=== PATIENT | male | born 1970 | race Caucasian/White ===

== ENCOUNTER 2025-04-16 07:59 | Outpatient (AMB) | payer OTHER, SELFPAY ==
--- NOTE | 2025-04-16 08:01 | A.PHYSOV_ITS ---
Vital Signs 04/16/25 08:04 Height 5 ft 7 in Weight 141 lb BMI 22.1 Intake Visit Reasons: MRI followup Intake Note: Patient is a 54 year old male in office today to review his lumbar spine MRI. Buyer Assistant Required: No Allergies No Known Allergies Allergy (Verified 04/16/25 08:02) HPI Comments Details: History of Present Illness The patient is a 54-year-old male presenting with chronic neck and lower back pain. The chronic neck pain is associated with right-sided radicular symptoms extending to the right arm, impacting his daily activities, especially given his right-handedness. He has a history of cervical radiculitis and underwent a C7-T1 epidural injection in 2019, which provided temporary relief. Recent cervical spine MRI on 04/02/2025 revealed severe right lateral spinal canal stenosis at the C4-C5 level with compression of the C5 nerve root and moderate compression of the spinal cord, correlating with his symptoms. Right worse than left foraminal stenosis at the C5-C6 level and severe foraminal stenosis at the C6-C7 level on the right side. Findings correlate with his symptomatic presentation The chronic lower back pain is accompanied by left-sided radicular symptoms, with a history of a left-sided L5-S1 paramedian disc herniation displacing the left S1 nerve root. A left S1 transforaminal injection on February 28, 2025, resulted in 100% pain relief in the lower back, although dysesthesia in the left lower extremity persists. The patient reports that static standing exacerbates the tingling sensation in his leg, while movement provides some relief. Pain Description - Onset: Chronic neck and lower back pain with radicular symptoms - Quality: Dull, aching pain in the neck radiating to the right arm; tingling in the left leg - Location: Neck, lower back, right arm, left leg - Exacerbating factors: Static standing increases tingling in the leg - Relieving factors: Movement alleviates tingling sensation Results - MRI of the lumbosacral spine: Left-sided L5-S1 paramedian disc herniation displacing the left S1 nerve root - MRI of the cervical spine: Severe stenosis at C4-C5 with compression of the C5 nerve root and moderate compression of the spinal cord; bilateral C5-C6 neural foraminal stenosis, right worse than left; severe stenosis of the C7 neural foramina at C6-C7 on the right side [facility] Medical History (Updated 04/16/25 @ 08:37 by Aniket Delong DO) Lumbar radiculitis Lumbar disc herniation Cervical radiculitis Cervical spinal stenosis Social History Alcohol intake: current Alcohol intake frequency: holidays/special occasions only Patient Tobacco Use Status: Former Tobacco user Use of substances other than those prescribed or required for medical reasons: No Current occupational status: employed Review of Systems Narrative Review of Systems - Musculoskeletal: Reports chronic neck and lower back pain with radicular symptoms - Neurological: Reports tingling in the left leg, right arm pain, patient denies any change in bowel bladder habits, patient denies any fever or chills, denies uncontrolled depression or suicidal ideation Physical Exam Exam Exam: Physical Exam Patient appears to be in no acute distress, appropriately conversant and oriented. He ambulates without antalgia. Dural tension signs were positive for left lower extremity. Neurological examination was nonfocal. He was able to perform heel walk and toe walk. Spurling maneuver was positive on the right side. Lhermitte's sign was negative. Cervical range of motion was restricted and side bending to the right and rotation to the right. Neurological examination reveals mildly diminished right triceps reflex with slight weakness of right elbow extension which has been stable since his last follow-up visit. Wrist extension and the rest of the muscle motor testing was normal. Patient demonstrated no upper motor neuron signs. Vital Signs: BMI result Body Mass Index 22.1 Assessment & Plan Assessment & Plan (1) Cervical spinal stenosis: Code(s): M48.02 - Spinal stenosis, cervical region Category: Medical (2) Cervical radiculitis: Code(s): M54.12 - Radiculopathy, cervical region Category: Medical (3) Lumbar disc herniation: Code(s): M51.26 - Other intervertebral disc displacement, lumbar region Category: Medical (4) Lumbar radiculitis: Code(s): M54.16 - Radiculopathy, lumbar region Category: Medical Plan Pain Management - Affect: Pain impacts daily activities, especially due to right-handedness - Analgesia: Left S1 transforaminal injection provided 100% pain relief in the lower back - Adverse Effects: None reported - Activities of Daily Living: Pain affects work at [employer] a sedentary job - Aberrant Drug Related Behaviors: None reported Plan Patient was informed and verbally consented to the use of an ambient scribe for clinic note documentation during this visit. 1. Chronic Neck Pain The patient has chronic neck pain with right-sided radicular symptoms extending to the right arm, correlating with cervical spinal stenosis findings on MRI. Management options discussed include considering another neck injection or surgical evaluation, depending on the severity of symptoms and patient preference. 2. Chronic Lower Back Pain The patient experiences chronic lower back pain with left-sided radicular symptoms due to L5-S1 disc herniation. A left S1 transforaminal injection provided significant relief, but persistent dysesthesia in the left leg remains. Consideration for a repeat injection was discussed to address ongoing symptoms. Discussion Notes I discussed with the patient the findings of the cervical and lumbar spine MRIs, highlighting the areas of stenosis and nerve compression that correlate with his symptoms. We reviewed the potential management options, including repeat injections or surgical evaluation, and the patient was advised to consider his symptoms' severity and lifestyle impact when deciding. Proceed with repeat left S1 transforaminal epidural steroidal injection. Risks and benefits of the procedure were discussed with the patient. Potential alternative measures were also discussed. Patient understands that the procedure is completely elective. Potential side effects associated with injectable medications were discussed. All questions were answered to the patient's satisfaction. Proceed with neurosurgical consultation for neck pain, cervical spinal stenosis and cervical radiculitis. Patient Instructions - Continue taking turmeric as it may help alleviate some symptoms. - Consider the option of a repeat injection for lower back pain if symptoms persist. - Evaluate the need for surgical consultation for neck pain based on symptom severity. Orders: Referrals Neurosurgery Referral M48.02 - Spinal stenosis, cervical region, M54.12 - Radiculopathy, cervical region Coding Level of Care Code Est Pt Level 4 (42162) Complex EM visit Add On G2211 Diagnoses Cervical spinal stenosis M48.02 Cervical radiculitis M54.12 Lumbar disc herniation M51.26 Lumbar radiculitis M54.16
[2025-04-16 08:04] VITALS: BMI 22.1
--- OUTSIDE RECORDS SUMMARY | 2025-04-16 15:31 | XMS_ITS | Clinical Summary ---
Author Organization [address] Address [address] [place] [phone] Phone Care Team Providers Care Process Improvement Engineer Name Role Phone Malachi Orozco MD Primary Care Provider [phone] Allergies Active Allergy Reactions Criticality Noted Date Comments Cat Dander 09/09/2014 Coughing , fever , sneezing Dog Dander 09/09/2014 Coughing , sneezing , Other Cough,Fever,Runny nose,Sneezing 09/09/2014 Seasonal Medications LORATADINE ORAL Acti ve acetaminophen (TYLENOL EXTRA STRENGTH ORAL) Take by mouth as needed. Active TURMERIC ORAL Also includes 5 MG black pepper. Active olopatadine (Pataday Once Daily Relief) 0.2 % ophthalmic solution 1 DROP IN EACH EYE DAILY 08/13/19 08 Active sennosides (SENNA-GEN ORAL) Take 8.6 mg by mouth 1 (one) time each day. Active UNABLE TO FIND livongo Meter ,lancets and test strips To test blood sugar Once or twice a week Active fluticasone propionate (FLONASE) 50 mcg/actuation nasal spray 11/02/19 22 Active hydroCHLOROthiaz lisa (HYDRODIURIL) 25 mg tablet Take 1 Tab by mouth daily. 03/07/20 20 Active polyethylene glycol (PEG) 17 gram/dose oral powder 17 g 1 (one) time each day. Active risankizumab-rza a (Skyrizi) 150 mg/mL pen injector Inject 150 mg under the skin. Every 3 months. Active tirzepatide (Mounjaro) 7.5 mg/0.5 mL injectionIndicat ions:Type 2 diabetes mellitus with neurological manifestations, controlled ([facility] V24, [facility] V28) Inject 7.5 mg into the skin every 7 days. 2 mL 10/24/19 Active omeprazole (PriLOSEC) [address] capsule TAKE ONE CAPSULE BY MOUTH EVERY DAY 90 capsule 1 02/01/20 Active methIMAzole (TAPAZOLE) 5 mg tablet Take 0.5 Tablets by mouth daily. 30 each 02/12/20 Active propranoloL (INDERAL) 20 mg tablet TAKE ONE TABLET BY MOUTH TWICE A DAY 180 tablet 1 03/13/20 Active atorvastatin (LIPITOR) 20 mg tablet TAKE ONE TABLET BY MOUTH EVERY DAY 90 tablet 1 03/13/20 Active lisinopriL (PRINIVIL,ZESTRI L) 2.5 mg tablet TAKE ONE TABLET BY MOUTH EVERY DAY 90 tablet 1 03/13/20 Active zolpidem (AMBIEN) 10 mg tablet Take 1 tablet (10 mg total) by mouth at bedtime as needed for sleep for up to 28 days. Max Daily Amount: 10 mg 28 tablet 04/07/20 25 025 Active zolpidem (AMBIEN) 10 mg tablet TAKE ONE TABLET BY MOUTH ONCE DAILY NEEDED FOR SLEEP 28 tablet 03/10/20 025 Discontinued Active Problems Problem Noted Date Diagnosed Date Bunion 09/09/2024 Cervical radiculitis 07/17/2024 Familial hypercholesterolemia 07/17/2024 Other hyperlipidemia 03/12/2024 Overview (03/12/2024): 10 year total CHD risk: 3%, 10 year hard CHC risk: 1%,risk category: 0-1 risk, LDL goal <160, Migraine headache 03/12/2024 Osteopenia 03/12/2024 Gastroparesis 01/02/2023 Bilateral renal cysts 09/27/2018 Insomnia 12/06/2016 Overview (03/12/2024): 11/2016 - diagnostic polysomnogram did not reveal sleep apnea. Referral to sleep medicine/neurology. Type 2 diabetes mellitus wit h neurological manifestations, controlled ([facility] V24, [facility] V28) 04/17/2014 Hyperthyroidism 01/30/2013 HTN (hypertension) 11/14/2011 Vitamin D deficiency 05/03/2010 Internal hemorrhoids 08/24/2009 Overview (03/12/2024): Flex sig in 2008 Eosinophilic esophagitis 05/11/2009 Overview (03/12/2024): Upper endoscopy with Dr. Conde in 04/2009 Encounters Date Type Department Care Team Description 04/08/2025 11:30 AM EST Office Visit Walk-In Clinic - [address] [phone] Holly Palomino NP Tick bite of abdominal wall, initial encounter (Primary Dx) 04/03/2025 4:43 PM EST - 04/03/2025 11:59 PM EST Hospital Encounter Radiology Department - [address] [phone] Spinal stenosis, cervical region; Radiculopathy, cervical region Discharge Disposition: Home or Self Care 04/03/2025 Telephone Endocrinology - [address] [phone] Kimberlee Morgan PA 02/13/2025 4:12 PM EDT - 02/13/2025 11:59 PM EDT Hospital Encounter Radiology Department - [address] [phone] Other intervertebral disc displacement, lumbar region; Radiculopathy, lumbar region Discharge Disposition: Home or Self Care 02/04/2025 10:30 AM EDT Office Visit Walk-In Clinic - [address] [phone] Jose Swain PA Acute left-sided low back pain with left-sided sciatica (Primary Dx) 02/04/2025 Telephone Internal Medicine - [address] [phone] Malachi Orozco MD from Last 3 Months Immunizations Immunization Administration Dates Next Due Diptheria & Tetanus, 6wks to less than 7yo 07/10/2004 Influenza Quadravalent, MDCK , 0.5ml, preservative free (Flucelvax) 6mo and older 02/27/2018 Influenza Quadravalent, MDCK , 0.5ml, with preservative (Flucelvax) 6mo and older 03/04/2021,02/27/2020,02/14/2020,02/26 Influenza trivalent, 0.5mL ( Fluad) 65yo and older 02/28/2013,03/02/2012 Influenza trivalent, 0.5mL, preservative free (Fluarix; FluLaval; Fluzone) ages 6mo and older (Afluria) 3 years and older 03/01/2017 Influenza trivalent, with pr eservative (Fluzone; Afluria) 6mo and older 02/22/2024 Influenza, Unspecified 03/02/2023,03/09/2022 Moderna Covid-19 Bivalent, O riginal + Ba.1 (Non-US Tradename Spikevax Bivalent) 02/22/2024 Moderna SARS-CoV-2 COVID-19, mRNA, LNP-S, preservative free 02/28/2022,09/03/2021 Pneumococcal conjugate 13 va lent (Prevnar 13, PCV13) 2mo and older 06/10/2016 Pneumococcal polysaccharide 23 valent (Pneumovax 23) 2yo and older 09/09/2014 Tdap Tetanus diptheria acell ular pertussis (Boostrix; Adacel) 7yo and older 06/07/2019 Zoster recombinant (Shingrix ) 19yo and older 2021,03/04/2021 Surgical History Surgery Date Site/Laterality Comments COLONOSCOPY PROCEDURE: LA COLONOSCOPY STOMA DX INCLUDING COLLJ SPEC SPX; COMMENT: flex sig, done with Dr. conde in 2008 for rectal bleed ESOPHAGOGASTRODUODENOSCOPY 2020 PROCEDURE: LA ESOPHAGOGASTRODUODENOSCOPY TRANSORAL DIAGNOSTIC; COMMENT: eosinophilic esophagitis FOOT SURGERY Bilateral PROCEDURE: LA UNLISTED PROCEDURE FOOT/TOES; COMMENT: ingrown toenail, last in 04/20 Medical History Medical History Date Comments Other and unspecified hyperlipidemia DX:Other and unspecified hyperlipidemia Osteopenia DX:Osteopenia Migraine headache DX:Migraine he adache Insomnia 12/06/2016 DX:Insomnia; COM MENT: 11/2016 - diagnostic polysomnogram did not reveal sleep apnea. Referral to sleep medicine/neurology. Bilateral renal cysts 09/27/2018 DX:Bilater al renal cysts Eosinophilic esophagitis 05/11/2009 DX:Eosi nophilic esophagitis; COMMENT: Upper endoscopy with Dr. Conde in 04/2009 Type 2 diabetes mellitus wit h neurological manifestations, controlled ([facility] V24, [facility] V28) 04/17/2014 DX:Type 2 diabet es mellitus with neurological manifestations, controlled ([facility]) Hyperthyroidism 01/30/2013 DX:Hyperthyroidi sm; COMMENT: now hypothyroidism Vitamin D deficiency 05/03/2010 DX:Vitamin D deficiency HTN (hypertension) 11/14/2011 DX:HTN (hyper tension) Internal hemorrhoids 08/24/2009 DX:Internal hemorrhoids; COMMENT: Flex sig in 2008 Psoriasis DX:Psoriasis Family History Medical History Relation Name Comments Alcohol abuse Brother Diabetes Brother Other: gout Brother Thyroid disease Father Other: tachycardia Mother Diabetes Paternal Grandmother Osteoporosis Paternal Grandmother ag e 96 Diabetes Uncle 1 pat Other: psoriasis Uncle 2 Prostate cancer Uncle 2 Relation Name Status Comments Brother Father Alive Mother Alive ? heart problem s Paternal Grandmother Uncle 1 Uncle 2 Alive Social History Tobacco Use Types Packs/Day Years Used Date Smoking Tobacco: Former Cigarettes 0.5 Q uit: 09/15/2008 Smokeless Tobacco: Never Tobacco Cessation:Counseling Given: Not Answered Alcohol Use Standard Drinks/Week Comments Yes 0 (1 standard drink = 0.6 oz pur e alcohol) Sex and Gender Information Value Date Recorded Sex Assigned at Male 04/22/2024 1:17 PM EST Legal Sex Male 6:56 AM EST Gender Identity Male 04/22/2024 1:17 PM EST Sexual Orientation Choose not to disclose 2023 1:17 PM EST Obstetrics History Last Filed Vital Signs Vital Sign Reading Time Taken Comments Blood Pressure 114/80 04/08/2025 11:24 AM EST Pulse 78 04/08/2025 11:24 AM EST Temperature 36.5 C (97.7 F) 04/08/2025 11:24 AM EST Respiratory Rate 16 04/08/2025 11:24 AM EST Oxygen Saturation 97% 04/08/2025 11:24 AM EST Inhaled Oxygen Concentration - - Weight 69.1 kg (152 lb 6.4 oz) 11/21/2024 8:15 A M EDT Height 170.2 cm (5' 7 ) 11/21/2024 8:15 AM EDT Body Mass Index 23.87 11/21/2024 8:15 AM EDT Plan of Treatment Upcoming Encounters Date Type Department Care Team (Late st Contact Info) Description 04/29/2025 10:00 AM EST Office Visit Endocrinology [address] [phone] Kimberlee Morgan PA [address] [place] [phone] 05/26/2025 9:30 AM EST Office Visit Internal Medicine - [address] [phone] Malachi Orozco MD [address] [place] [phone] 07/16/2025 9:30 AM EST Office Visit Orthopedic Surgery - [place] [address] [phone] Jefferson Mejias, DPM [address] [phone] 09/29/2025 8:30 AM EDT Office Visit Internal Medicine - [address] [phone] Malachi Orozco MD [address] [place] [phone] Health Maintenance Due Date Last Done Comments Hepatitis B Vaccines (1 of 3 - 19+ 3-dose series) 1988 RSV Immunization Adult Patients (1 - Risk 50-74 years 1-dose series) 2019 Pneumococcal Vaccine: 50+ Years (3 of 3 - PCV20 or PCV21) 06/10/2021 06/10/2016, 09/09/2014 HIV Screening 05/07/2022 Social Influencers of Health Screening 05/07/2022 Diabetes: Annual Retina Eye Exam 04/10/2024 04/10/2023 Depression Screening 05/29/2024 Diabetes: Annual Foot Exam 09/07/2024 09/08/2023 COVID-19 Vaccine ( season) 2025 02/28/2024, 02/22/2024, 03/07/2023, Additional history exists Influenza Vaccine (#1) 2025 , 02/22/2024, 03/07/2023, Additional history exists Diabetes: Annual Urine Albumin-Creatinine Ratio (uACR) 04/15/2025 04/15/2024, 05/09/2023 Diabetes: Blood Sugar Control Test (HGBA1C) 04/18/2025 10/16/2024, 04/15/2024, 11/22/2023, Additional history exists Diabetes: Annual GFR (Glomerular Filtration Rate) 10/16/2025 10/16/2024, 04/15/2024, 11/22/2023, Additional history exists Hypertension/CHF/CAD Annual BMP Blood Test 10/16/2025 10/16/2024, 04/15/2024, 11/22/2023, Additional history exists DTaP,Tdap,and Td Vaccines (3 - Td or Tdap) 06/07/2029 06/07/2019, 07/10/2004 Cholesterol Screening (Lipid Panel) 10/16/2029 10/16/2024, 04/15/2024, 11/22/2023, Additional history exists Colorectal Cancer Screening: Colonoscopy 08/03/2030 08/03/2020 Hepatitis C Screening Completed 02/07/2012 Zoster Vaccines Completed 2021, 03/04/2021 HIB Vaccines Aged Out No longer eligi ble based on patient's age to complete this topic HPV Vaccines Aged Out No longer eligi ble based on patient's age to complete this topic Hepatitis A Vaccines Aged Out No long er eligible based on patient's age to complete this topic IPV Vaccines Aged Out No longer eligi ble based on patient's age to complete this topic MMR Vaccines Aged Out No longer eligi ble based on patient's age to complete this topic Meningococcal ACWY Vaccine Aged Out N o longer eligible based on patient's age to complete this topic Meningococcal B Vaccine Aged Out No l onger eligible based on patient's age to complete this topic RSV Immunization Patients Under 20 months Aged Out No longer eligible based on patient's age to complete this topic Varicella Vaccines Aged Out No longer eligible based on patient's age to complete this topic Procedures Procedure Name Priority Date/Time Associated Diagnosis Comments MR CERVICAL SPINE WO CONTRAST Routine 04/03/2025 5:26 PM EST Spinal stenosis, cervical region Radiculopathy, cervical region MR LUMBAR SPINE WO CONTRAST Routine 02/13/2025 5:05 PM EDT Other intervertebral disc displacement, lumbar region Radiculopathy, lumbar region COMPREHENSIVE METABOLIC PANEL Routine 10/16/2024 10:25 AM EDT Polypharmacy HEMOGLOBIN A1C Routine 10/16/2024 10:25 AM EDT Type 2 diabetes mellitus with neurological manifestations, controlled (CMS/HCC V24, CMS/HCC V28) LIPID PANEL WITH REFLEX TO DIRECT LDL Routine 10/16/2024 10:25 AM EDT Screening for hyperlipidemia MICROALBUMIN CREATININE URINE RATIO Routine 04/15/2024 10:52 AM EST Type 2 diabetes mellitus with neurological manifestations, controlled (CMS/HCC V24, CMS/HCC V28) DIABETES FOOT EXAM Routine 09/08/2023 DIABETES EYE EXAM Routine 04/10/2023 COLONOSCOPY Routine 08/03/2020 HEPATITIS C SCREENING Routine 02/07/2012 from Last 3 Months or Most Recently Relevant to Health Maintenance Results * MR Cervical Spine wo Contrast (04/03/2025 5:26 PM EST) Anatomical Region Laterality Modality C-spine, Spine Magnetic Resonan ce 04/03/2025 6:39 PM EST Narrative 04/03/2025 7:07 PM EST MRI of the cervical spine without intravenous contrast. History chronic neck and thumb low back pain. Examination was performed on 1.5 Carolyn magnet without administration of intravenous contrast. Comparison with prior examination from 09/14. Cerebellar tonsils are normally positioned. Vertebral bodies are maintained in height. C2-3 level is unremarkable. C3-4 level is unremarkable. At C4-5 level disc is decreased in height and signal intensity. There is disc osteophyte complex obliterating the anterior subarachnoid space. There is a prominent right paramedian disc osteophyte complex in combination with hypertrophy of the right uncovertebral joint causing severe stenosis of the right lateral recess and right C5 neural foramen and moderate compression of the right anterior aspect of the spinal cord. There is moderate spinal stenosis at this level. There is less prominent narrowing of the right lateral recess and the right C5 neural foramen. At C5-6 level disc is decreased in height and T2 signal. There is disc osteophyte complex with severe narrowing of the anterior subarachnoid space. There is effacement of the anterior surface of the spinal cord. There are hypertrophic changes in the uncovertebral joints contributing to severe osteophytic narrowing of the C6 neural foramina, right more than left. At C6-7 level disc is decreased in height and T2 signal. There is mild bulging of the disc. There is hypertrophy of the are uncovertebral joints significantly more prominent on the right. There is severe stenosis of the C7 neural foramina and mild narrowing of the left C7 neural foramen. C7-T1 level is unremarkable. Spinal cord was visualized without evidence of focal signal abnormalities. Perivertebral soft tissues appear to be unremarkable. When compared with previous examinations there is interval progression of the degenerative changes. CONCLUSIONS: Multilevel bony and discs degenerative changes more prominent at C4-5 level. Moderate spinal stenosis at C4-5 level, compression of the right aspect of the spinal cord at C4-5 level due to disc osteophyte complex and hypertrophy of the right uncovertebral joint. Effacement of the anterior surface of the spinal cord at C5-6 level. Stenosis of the lateral recesses and neural foramina at multiple levels as detailed in the report. No focal signal abnormalities within the cord. -------- FINAL REPORT -------- Dictated By: Desire Watts Dictated Date: 04/03/2025 18:39 ET Assigned Physician: Desire Watts Reviewed and Electronically Signed By: Desire Watts Signed Date: 04/03/2025 19:07 ET Workstation ID: [id number] Transcribed By: Self Edit Transcribed Date: 04/03/2025 18:39 ET Procedure Note Desire Watts MD - 04/03/2025 MRI of the cervical spine without intravenous contrast. History chronic neck and thumb low back pain. Examination was performed on 1.5 Carolyn magnet without administration ofintravenous contrast. Comparison with prior examination from 09/14. Cerebellar tonsils are normally positioned. Vertebral bodies aremaintained in height. C2-3 level is unremarkable. C3-4 level is unremarkable. At C4-5 level disc is decreased in height and signal intensity. There isdisc osteophyte complex obliterating the anterior subarachnoid space.There is a prominent right paramedian disc osteophyte complex incombination with hypertrophy of the right uncovertebral joint causingsevere stenosis of the right lateral recess and right C5 neural foramenand moderate compression of the right anterior aspect of the spinal cord.There is moderate spinal stenosis at this level. There is less prominentnarrowing of the right lateral recess and the right C5 neural foramen. At C5-6 level disc is decreased in height and T2 signal. There is discosteophyte complex with severe narrowing of the anterior subarachnoidspace. There is effacement of the anterior surface of the spinal cord.There are hypertrophic changes in the uncovertebral joints contributing tosevere osteophytic narrowing of the C6 neural foramina, right more thanleft. At C6-7 level disc is decreased in height and T2 signal. There is mildbulging of the disc. There is hypertrophy of the are uncovertebral jointssignificantly more prominent on the right. There is severe stenosis of theC7 neural foramina and mild narrowing of the left C7 neural foramen. C7-T1 level is unremarkable. Spinal cord was visualized without evidence of focal signalabnormalities. Perivertebral soft tissues appear to be unremarkable. When compared with previous examinations there is interval progression ofthe degenerative changes. CONCLUSIONS: Multilevel bony and discs degenerative changes more prominent at C4-5level. Moderate spinal stenosis at C4-5 level, compression of the rightaspect of the spinal cord at C4-5 level due to disc osteophyte complex andhypertrophy of the right uncovertebral joint. Effacement of the anteriorsurface of the spinal cord at C5-6 level. Stenosis of the lateral recessesand neural foramina at multiple levels as detailed in the report. No focalsignal abnormalities within the cord. -------- FINAL REPORT -------- Dictated By: Desire Watts Dictated Date: 04/03/2025 18:39 ET Assigned Physician: Desire Watts Reviewed and Electronically Signed By: Desire Watts Signed Date: 04/03/2025 19:07 ET Workstation ID: [id number] Transcribed By: Self Edit Transcribed Date: 04/03/2025 18:39 ET Aniket Delong DO IMG MRI PROCEDURES Final Result * MR Lumbar Spine wo Contrast (02/13/2025 5:05 PM EDT) Anatomical Region Laterality Modality L-spine, Spine Magnetic Resonan ce 02/13/2025 5:42 PM EDT Impressions 02/13/2025 5:59 PM EDT Large left paramedian disc herniation at L5-S1, compressing and displacing the left S1 nerve root. This disc herniation has increased slightly in size since the previous study. -------- FINAL REPORT -------- Dictated By: Taryn Pisano Dictated Date: 02/13/2025 17:42 ET Assigned Physician: Taryn Pisano Reviewed and Electronically Signed By: Taryn Pisano Signed Date: 02/13/2025 17:59 ET Workstation ID: [id number] Transcribed By: Self Edit Transcribed Date: 02/13/2025 17:42 ET Narrative 02/13/2025 5:59 PM EDT MR LUMBAR SPINE WO CONTRAST MR OF THE LUMBAR SPINE WITHOUT CONTRAST HISTORY: Technique: MR of the lumber spine was performed without contrast utilizing the standard departmental protocol. However, the patient was claustrophobic and was unable tolerate the STIR sagittal sequence. COMPARISON: MRI lumbar 08/24/2016. FINDINGS: Conus medullaris terminates at the [T12/L1] level, and demonstrates normal signal. There is no abnormal thickening or clumping of the cauda equina nerve roots. There is normal alignment of the lumbar spine. Vertebral body heights are normal. Marrow signal is normal. At T12-L1, no significant disc herniation, central spinal canal stenosis or neuroforaminal narrowing is demonstrated on the sagittal sequences. At L1-L2, no significant disc herniation, central spinal canal stenosis or neuroforaminal narrowing. At L2-L3, no significant disc herniation, central spinal canal stenosis or neuroforaminal narrowing. At L3-L4, no significant disc herniation, central spinal canal stenosis or neuroforaminal narrowing. At L4-L5, no significant disc herniation, central spinal canal stenosis or neuroforaminal narrowing. There is mild facet hypertrophy. At L5-S1, there is disc desiccation and disc space narrowing. There is a large left paramedian disc herniation which compresses and displaces the left S1 nerve root. This disc herniation has increased slightly in size since the previous study. Procedure Note Taryn Pisano MD - 02/13/2025 MR LUMBAR SPINE WO CONTRAST MR OF THE LUMBAR SPINE WITHOUT CONTRAST HISTORY: Technique: MR of the lumber spine was performed without contrast utilizingthe standard departmental protocol. However, the patient wasclaustrophobic and was unable tolerate the STIR sagittal sequence. COMPARISON: MRI lumbar 08/24/2016. FINDINGS: Conus medullaris terminates at the [T12/L1] level, anddemonstrates normal signal. There is no abnormal thickening or clumping ofthe cauda equina nerve roots. There is normal alignment of the lumbarspine. Vertebral body heights are normal. Marrow signal is normal. At T12-L1, no significant disc herniation, central spinal canal stenosisor neuroforaminal narrowing is demonstrated on the sagittal sequences. At L1-L2, no significant disc herniation, central spinal canal stenosis orneuroforaminal narrowing. At L2-L3, no significant disc herniation, central spinal canal stenosis orneuroforaminal narrowing. At L3-L4, no significant disc herniation, central spinal canal stenosis orneuroforaminal narrowing. At L4-L5, no significant disc herniation, central spinal canal stenosis orneuroforaminal narrowing. There is mild facet hypertrophy. At L5-S1, there is disc desiccation and disc space narrowing. There is alarge left paramedian disc herniation which compresses and displaces theleft S1 nerve root. This disc herniation has increased slightly in sizesince the previous study. IMPRESSION: Large left paramedian disc herniation at L5-S1, compressing and displacingthe left S1 nerve root. This disc herniation has increased slightly insize since the previous study. -------- FINAL REPORT -------- Dictated By: Taryn Pisano Dictated Date: 02/13/2025 17:42 ET Assigned Physician: Taryn Pisano Reviewed and Electronically Signed By: Taryn Pisano Signed Date: 02/13/2025 17:59 ET Workstation ID: [id number] Transcribed By: Self Edit Transcribed Date: 02/13/2025 17:42 ET Aniket Delong DO IMG MRI PROCEDURES Final Result * (ABNORMAL) Lipid panel with reflex to direct LDL (10/16/2024 10:25 AM EDT) Cholesterol 168 0 - 200 mg/dL LAB CHEMISTRY METHOD 10/16/2024 2:58 PM EDT [facility] Triglycerides 266(H) 0 - 150 mg/dL LAB CHEMISTRY METHOD 10/16/2024 2:58 PM [facility] HDL 34(L) >=40 mg/dL LAB CHE[facility]STRY METHOD [facility] LDL Calculated 81 0 - 100 mg/dL LAB CHEMISTRY METHOD 10/16/2024 2:58 PM EDT [facility] VLDL Cholesterol Tayo 53.2 mg/dL LAB CHEMISTRY METHOD [facility] Non HDL Chol. (LDL+VLDL) 134 <145 mg/dL LAB CHEMISTRY METHOD 10/16/2024 2:58 PM EDT [facility] Chol/HDL Ratio 4.9(H) 0.0 - 4.4 LAB CHEMISTRY METHOD 10/16/2024 2:58 PM EDT [facility] Blood Venous blood specimen / Unknown Venipuncture / Unknown 10/16/2024 10:25 AM EDT 10/16/2024 10:26 AM EDT Malachi Orozco MD LAB BLOOD ORDERABLES Final Res ult Performing Organization Address [facility]/ZIP Co de Phone Number [facility] [address] [place] [address], [place] [phone] * Hemoglobin A1c (10/16/2024 10:25 AM EDT) [facility] Hemoglobin A1C 5.0 <6.5 % LAB CHEMISTRY METHOD 10/18/2024 10:33 PM EDT [facility] Mean Bld Glu Estim. 97 mg/dL LAB CHEMISTRY METHOD 10/18/2024 10:33 PM EDT [facility] Blood Venous blood specimen / Unknown Venipuncture / Unknown 10/16/2024 10:25 AM EDT 10/16/2024 10:26 AM EDT Kimberlee NUÑEZ LAB BLOOD ORDERABLES Final Result Performing Organization Address [facility] de Phone Number [facility] LAB [address] [place] [address], [place] [phone] * (ABNORMAL) Comprehensive metabolic panel (10/16/2024 10:25 AM EDT) [facility] Sodium 137 133 - 145 mmol/L LAB CHEMISTRY METHOD 10/16/2024 2:58 PM EDT [facility] Potassium 3.9 3.5 - 5.5 mmol/L LAB CHEMISTRY METHOD 10/16/2024 2:58 PM EDT [facility] Chloride 105 96 - 110 mmol/L LAB CHEMISTRY METHOD 10/16/2024 2:58 PM EDT [facility] CO2 25 21 - 32 mmol/L LAB CHEMISTRY METHOD 10/16/2024 2:58 PM [facility] Anion Gap 7 3 - 11 LAB CHEMISTRY METHOD 10/16/2024 2:58 PM [facility] Glucose 105(H) 70 - 100 mg/dL LAB CHEMISTRY METHOD 10/16/2024 2:58 PM [facility] BUN 14 5 - 25 mg/dL LAB CHEMISTRY METHOD 10/16/2024 2:58 PM [facility] Creatinine 0.92 0.70 - 1.30 mg/dL LAB CHEMISTRY METHOD 10/16/2024 2:58 PM [facility] eGFR 98 >=60 mL/min/1. 73m2 LAB CHEMISTRY METHOD 10/16/2024 2:58 PM [facility] Comment:Calculation based on the Chronic Kidney Disease Epidemiology Collaboration (CKD-EPI) equation refit without adjustment for race. BUN/Creatinine Ratio 15.2 LAB CHEMISTRY METHOD 10/16/2024 2:58 PM [facility] Calcium 8.9 8.5 - 10.5 mg/dL LAB CHEMISTRY METHOD 10/16/2024 2:58 PM [facility] AST (SGOT) 14 10 - 42 unit/L LAB CHEMISTRY METHOD 10/16/2024 2:58 PM [facility] ALT (SGPT) 25 10 - 60 unit/L LAB CHEMISTRY METHOD 10/16/2024 2:58 PM [facility] Alkaline Phosphatase 72 42 - 121 unit/L LAB CHEMISTRY METHOD 10/16/2024 2:58 PM [facility] Total Protein 7.3 6.0 - 8.0 g/dL LAB CHEMISTRY METHOD 10/16/2024 2:58 PM [facility] Albumin 4.1 3.2 - 5.0 g/dL LAB CHEMISTRY METHOD 10/16/2024 2:58 PM [facility] Total Bilirubin 0.8 0.0 - 1.4 mg/dL LAB CHEMISTRY METHOD 10/16/2024 2:58 PM EDT [facility] Blood Venous blood specimen / Unknown Venipuncture / Unknown 10/16/2024 10:25 AM EDT 10/16/2024 10:26 AM EDT Esther NUÑEZ LAB BLOOD ORDERABLES Gia l Result Performing Organization Address City/[facility]/ZIP Co de Phone Number [facility] [address] [place] [address], [place] [phone] * Microalbumin creatinine urine ratio (04/15/2024 10:52 AM EST) [facility] Creatinine, Urine 260.0 mg/dL LAB CHEMISTRY METHOD 04/15/2024 4:38 PM EST [facility] Microalb, Ur 12.6 0.0 - 29.0 mg/L LAB CHEMISTRY METHOD 04/15/2024 4:38 PM EST [facility] Microalb/Creat Ratio 5 <30 mg/g creat LAB CHEMISTRY METHOD 04/15/2024 4:38 PM EST [facility] Urine Urine specimen from urethra / Unknown Non-blood Collection / Unknown 04/15/2024 10:52 AM EST 04/15/2024 10:52 AM EST Kimberlee NUÑEZ LAB URINE ORDERABLES Final Result Performing Organization Address City/[facility]/ZIP Co de Phone Number [facility] [address] [place] [address], [place] [phone] * Diabetes Foot Exam (09/08/2023) [facility] Diabetes: Annual Foot Exam Abstracted Historical Provider HEALTH MAINTENANCE Final Result * Diabetes Eye Exam (04/10/2023) [facility] Diabetes: Annual Retina Eye Exam Abstracted Historical Provider HEALTH MAINTENANCE Final Result * Colonoscopy (08/03/2020) Colonoscopy No Interpretation , Abstracted Anatomical Region Laterality Modality Other Historical Provider HEALTH MAINTENANCE Final Result * Hepatitis C Screening (02/07/2012) Hepatitis C Screening Abstracted Historical Provider HEALTH MAINTENANCE Final Result from Last 3 Months or Most Recently Relevant to Health Maintenance Insurance [facility] Member Subscriber Plan / Payer (Ef fective 2020-Present) Name:CHRISTIAN GUY Relation to Subscriber:Self Name:Christian Guy Payer ID:[id number] (NAIC) Type:Not on file Address: [facility] [address] [id number] Care Teams Process Improvement Engineer Relationship Specialty Start Date End Date Malachi Orozco MD [address] [place] [id number] PCP - General Internal Medicine 04/15/24
--- OUTSIDE RECORDS SUMMARY | 2025-04-16 15:31 | XMS_ITS | Encounter Summary ---
Author Organization [facility] [place] [address] Care Team Providers Care Photocopier Technician Name Role Phone Malachi Orozco MD Primary Care Provider [phone] Reason for Visit * Reason Onset Date Comments Labs Only 04/03/2025 Encounter Details Date Type Department Care Team (Late st Contact Info) Description 04/03/[address] [phone] Kimberlee oMrgan PA [address] [place] [phone] Social History Tobacco Use Types Packs/Day Years Used Date Smoking Tobacco: Former Cigarettes 0.5 Q uit: 09/15/2008 Smokeless Tobacco: Never Alcohol Use Standard Drinks/Week Comments Yes 0 (1 standard drink = 0.6 oz pur e alcohol) Sex and Gender Information Value Date Recorded Sex Assigned at Male 04/22/2024 1:17 PM EST Legal Sex Male 6:56 AM EST Gender Identity Male 04/22/2024 1:17 PM EST Sexual Orientation Choose not to disclose 2023 1:17 PM EST documented as of this encounter Progress Notes * JOAQUIN Ruvalcaba - 04/03/2025 4:59 PM EST Done * Katie Vidal - 04/03/2025 4:44 PM EST Endocrine Call Primary endocrine provider: Kimberlee Morgan PA-C Is the endocrine provider in the office toady?: yes Who is calling? The patient. If not the patient or parent/guardian please check for authorization to share/verbal release. Why is the person calling? Orders (labs or imaging). Patient wanting labs/images ordered. Please send directly to endocrine provider. Which labs/images: Pt came into office to request A1C labwork andany other lab work he needs before his upcoming appt 04/29. documented in this encounter Plan of Treatment Upcoming Encounters Date Type Department Care Team (Late st Contact Info) Description 04/29/2025 10:00 AM EST Office Visit Endocrinology [address] [phone] Kimberlee Morgan PA [address] [place] [address] 05/26/2025 9:30 AM EST Office Visit Internal Medicine - [address] [phone] Malachi Orozco MD [address] [place] [address] 07/16/2025 9:30 AM EST Office Visit Orthopedic Surgery - [place] [address] [phone] Jefferson Mejias, DPM [address] [address] 09/29/2025 8:30 AM EDT Office Visit Internal Medicine - [address] [phone] Malachi Orozco MD [address] [place] [address] Scheduled Orders Name Type Priority Associated Diagnoses Orde r Schedule Basic metabolic panel Lab Routine Type 2 diabetes mellitus with neurological manifestations, controlled ([facility], [facility] V28) 1 Occurrences starting 04/03/2025 until 04/03/2026 Hemoglobin A1c Lab Routine Type 2 diabetes mellitus with neurological manifestations, controlled ([facility] V24, [facility] V28) 1 Occurrences starting 04/03/2025 until 04/03/2026 Lipid panel with reflex to direct LDL Lab Routine Type 2 diabetes mellitus with neurological manifestations, controlled ([facility] V24, [facility] V28) 1 Occurrences starting 04/03/2025 until 04/03/2026 Microalbumin creatinine urine ratio Lab Routine Type 2 diabetes mellitus with neurological manifestations, controlled ([facility] V24, [facility] V28) 1 Occurrences starting 04/03/2025 until 04/03/2026 documented as of this encounter Visit Diagnoses Diagnosis Type 2 diabetes mellitus with neurological manifestations, controlled ([facility] V24, [facility] V28)- Primary Type II or unspecified type diabetes mellitus with neurological manifestations, not stated as uncontrolled documented in this encounter Care Teams Photocopier Technician Relationship Specialty Start Date End Date Malachi Orozco MD [address] [place] [address] PCP - General Internal Medicine 04/15/24 documented as of this encounter
--- OUTSIDE RECORDS SUMMARY | 2025-04-16 15:31 | XMS_ITS | Encounter Summary ---
Author Organization [facility], Address [address] [place] [address] Phone Care Team Providers Care Social Secretary Name Role Phone Malachi Orozco MD Primary Care Provider [phone] Encounter Details Date Type Department Care Team (Late st Contact Info) Description 07/26/2023 Documentation Only [facility], [address] [place] [address] [place], [place] [address] [place] [address] Social History Tobacco Use Types Packs/Day Years Used Date Smoking Tobacco: Former Cigarettes 0.5 Q uit: 05/29/2008 Comments:Smoking History Inf o:Every day Sex and Gender Information Value Date Recorded Sex Assigned at Not on file Legal Sex Male 8:35 AM EST Gender Identity Not on file Sexual Orientation Not on file documented as of this encounter Plan of Treatment Not on file documented as of this encounter Visit Diagnoses Not on filedocumented in this encounter Care Teams Social Secretary Relationship Specialty Start Date End Date Malachi Orozco MD PCP - General 04/02/19 documented as of this encounter
--- OUTSIDE RECORDS SUMMARY | 2025-04-16 15:31 | XMS_ITS | Encounter Summary ---
Author Organization [facility] Address [address] [place] [address] Care Team Providers Care Sales Assistant Name Role Phone Malachi Orozco MD Primary Care Provider [phone] Encounter Details Date Type Department Care Team (Late Contact Info) Description 05/06/2024 Lab Requisition [facility] - Main Lab [address] [facility] [place] [address] Yasmani Herrera MD [address] [phone] Benign prostatic hyperplasia with lower urinary tract symptoms Social History Tobacco Use Types Packs/Day Years [...] PM EST documented as of this encounter Plan of Treatment Upcoming Encounters Date Type Department Care Team (Late st Contact Info) Description 04/29/2025 10:00 AM EST Office Visit Endocrinology - [place] [address] [place] [phone] Kimberlee Morgan PA [address] [place] [address] 05/26/2025 9:30 AM EST Office Visit Internal Medicine - [address] [phone] Malachi Orozco MD [address] [place] [address] 07/16/2025 9:30 AM EST Office Visit Orthopedic Surgery - [place] [address] [place] [phone] Jefferson Mejias, DPM [address] [address] 09/29/2025 8:30 AM EDT Office Visit Internal Medicine - [address] [phone] Malachi Orozco MD [address] [place] [address] documented as of this encounter Procedures Procedure Name Priority Date/Time Associated Diagnosis Comments PROSTATE SPECIFIC ANTIGEN DIAGNOSTIC Routine 05/06/2024 9:46 AM EST Benign prostatic hyperplasia with lower urinary tract symptoms documented in this encounter Results * Prostate specific antigen diagnostic (05/06/2024 9:46 AM EST) PSA 0.34 0.00 - 4.00 ng/mL LAB CHEMISTRY METHOD 05/06/2024 12:46 PM EST [facility] Blood Venous blood specimen / Unknown 05/06/2024 9:46 AM EST 05/06/2024 12:10 PM EST [facility] - 05/06/2024 12:46 PM EST The Siemens Advia Centaur Chemiluminescent Immunoassay is used. Results obtained with different assay methods or kits cannot be used interchangeably. Results cannot be interpreted as absolute evidence of the presence or absence of malignant disease. us Yasmani Herrera MD LAB BLOOD ORDERABLES Final Resul t [facility] H[facility]PITAL LAB [address] [place] [address], documented in this encounter Visit Diagnoses Diagnosis Benign prostatic hyperplasia with lower urinary tract symptoms documented in this encounter Care Teams Sales Assistant Relationship Specialty Start Date End Date Malachi Orozco MD [address] [place] [address] PCP - General Internal Medicine 04/15/24 documented as of this encounter
--- OUTSIDE RECORDS SUMMARY | 2025-04-16 15:31 | XMS_ITS | Clinical Summary ---
Author Organization [facility], Address [address] [place] [address] [place] [address] Phone Care Team Providers Care Inspector Receiving Name Role Phone Malachi Orozco MD Primary Care Provider Allergies Active Allergy Reactions Criticality Noted Date Comments Prednisone Other (see comments) 06/14/2019 Medications atorvastatin (LIPITOR) 20 MG tablet Take 1 tablet by mouth 1 (one) time each day Active TRULICITY 1.5 MG/0.5ML solution pen-injector 3 mg 04/23/2019 Active propranolol (INDERAL) 20 MG tablet Take 1 tablet by mouth 2 (two) times a day Active metFORMIN (FORTAMET) 500 MG 24 hr tablet Take 1 tablet by mouth 1 (one) time each day with dinner Active methIMAzole (TAPAZOLE) 10 MG tablet 5 mg Active lisinopril (PRINIVIL,ZESTRI L) 2.5 MG tablet Take 1 tablet by mouth 1 (one) time each day Active zolpidem (AMBIEN) 10 MG tablet Take 1 tablet by mouth at bed time Active cholecalciferol (VITAMIN D-3) 10 MCG (400 UNIT) tablet Take 400 Units by mouth 1 (one) time each day Active calcipotriene (DOVONOX) 0.005 % cream 04/16/2020 Active loratadine (CLARITIN) 10 MG tablet Take 10 mg by mouth 1 (one) time each day Active Turmeric 500 MG capsule Take 1,000 mg by mouth daily Active omeprazole (PriLOSEC) [address] capsule Take 20 mg by mouth 1 (one) time each day Do not crush or chew. 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 Vitamin D deficiency 022 Social History Tobacco Use Types Packs/Day Years Used Date Smoking Tobacco: Former Cigarettes 0.5 Q uit: 05/29/2008 Comments:Smoking History Inf o:Every day Sex and Gender Information Value Date Recorded Sex Assigned at Not on file Legal Sex Male 8:35 AM EST Gender Identity Not on file Sexual Orientation Not on file Last Filed Vital Signs Vital Sign Reading Time Taken Comments Blood Pressure 118/76 06/09/2022 3:30 PM EST Pulse 79 06/09/2022 3:30 PM EST Temperature - - Respiratory Rate - - Oxygen Saturation - - Inhaled Oxygen Concentration - - Weight 67.6 kg (149 lb) 06/08/2021 3:49 PM EST Height 170.2 cm (5' 7 ) 06/18/2019 9:02 AM EST Body Mass Index 23.34 06/18/2019 9:02 AM EST Plan of Treatment Health Maintenance Due Date Last Done Comments Hepatitis B Vaccine (1 of 3 - 19+ 3-dose series) 07/20 Pneumococcal Vaccine: 50+ Years (1 of 2 - PCV) 989 Colorectal Cancer Screening: Annual FOBT 2018 Colorectal Cancer Screening: Colonoscopy 2018 Colorectal Cancer Screening: Sigmoidoscopy 2018 Diabetes: Ophthalmology Exam 05/07/2019 Diabetes: Pedal Pulse Checked 05/07/2019 Diabetes: Sensory Foot Exam 05/07/2019 Diabetes: Visual Foot Exam 05/07/2019 Diabetes: Hemoglobin A1C 12/10/2019 09/10/2019 Influenza Vaccine (#1) 2025 Procedures Procedure Name Priority Date/Time Associated Diagnosis Comments HEMOGLOBIN A1C Routine 09/10/2019 12:03 PM EDT Type 2 diabetes mellitus, not otherwise specified (HCC) from Last 3 Months or Most Recently Relevant to Health Maintenance Results * Hemoglobin A1c (09/10/2019 12:03 PM EDT) Hemoglobin A1C 5.3 (4.0-5.6) % [facility] Comment: MONITORING: In known diabetic patients, hemoglobin A1c targets should be discussed with health care provider. DIAGNOSTIC USE: The [place] Diabetes Association (ADA) and the World Health Organization (WHO) recommend the use of HbA1c to diagnose diabetes using a threshold of 6.5%. Patients who have an HbA1c between 5.7% and 6.4% are considered at increased risk for developing diabetes in the future. CAUTION: Falsely low HbA1c results may be observed in patients with hemolytic anemia, homozygous forms of abnormal hemoglobin (e.g. SS, CC, SC), , recent blood loss or hemoglobin F greater than 7%. Fructosamine may be used as an alternate test in these cases. REFERENCE: ADA: Standards of Medical Care in Diabetes 2020, The Journal of Clinical and Applied Research and Education Volume 43, Supplement 1 Testing performed or reported by [facility], a Service of [facility], [address] [place] [id number] Kerry Ayala MD, Chemical Engineer Blood specimen (specimen) Venous blood / Unknown 09/10/2019 12:03 PM EDT 09/10/2019 12:06 PM EDT us Keila NUÑEZ LAB BLOOD ORDERABLES Final Res ult [facility] from Last 3 Months or Most Recently Relevant to Health Maintenance Insurance [facility] [place] [address] Care Teams Inspector Receiving Relationship Specialty Start Date End Date Malachi Orozco MD PCP - General 04/02/19
== END 2025-04-16 08:32 | disposition home or self-care (01) ==
PROVIDERS: PCP Internal Medicine; Visit Provider Physical Medicine & Rehabilitation
DX: M48.02 Spinal stenosis, cervical region (principal); M54.12 Radiculopathy, cervical region; M51.26 Other intervertebral disc displacement, lumbar region; M54.16 Radiculopathy, lumbar region
CPT/HCPCS: 99214; G2211

== ENCOUNTER 2025-04-28 13:54 | Outpatient (AMB) | payer OTHER, SELFPAY ==
--- NOTE | 2025-04-28 14:01 | HO.SPINEOV ---
Vital Signs 04/28/25 14:08 Height 5 ft 7 in Weight 141 lb BMI 22.1 Intake Visit Reasons: cervical radiculitis Intake Note: Mr. Guy is here today c/o Right sided neck and low back numbness and tingling with leg pain. Regulatory Process Manager Required: No Allergies No Known Allergies Allergy (Verified 04/28/25 14:09) Assessment & Plan Assessment & Plan (1) Hand numbness: Code(s): R20.0 - Anesthesia of skin Category: Medical (2) Cervicalgia: Code(s): M54.2 - Cervicalgia Category: Medical (3) Right arm pain: Code(s): M79.601 - Pain in right arm Category: Medical Plan Dear Dr. Delong, Thank you for referring Mr. Guy to our office today. He is a pleasant 54 year old male who comes in today for evaluation of neck pain and right upper extremity pain. He has been evaluated by your office for this issue and underwent C7-T1 epidural injection in 2019 which provided temporary relief of his pain. Unfortunately as the years progressed his pain seems to have worsened. He reports that in 2018 he began experiencing a dull aching posterior neck pain which eventually began to radiate down toward the right side of his neck into the right shoulder. This pain seemed to wax/wane as time progressed with occasional flare-ups. Overall he described this as a low-grade pain never exceeding about a 4/10 at its worst. He went about 6 months without significant neck or arm pain until January when he began experiencing fairly significant flare-up of his pain once more, again rating this at about a 4/10 at its worst. He reports that when his posterior neck pain flared up in January he began experiencing a dull aching pain near his right triceps and near the volar surface of his forearm/wrist. In addition to this he noticed that he has been waking up overnight due to pain and numbness in his bilateral hands. He also experiences numbness in his hand when driving a car. When asked if the pain in his right arm is a shooting pain that originates from the neck and travels down the arm he states that it is not. It feels more like a dull aching pain well localized to the aforementioned areas. When describing the numbness/tingling that he experiences he states that it comes and goes as well. For example when sitting in the examination room today he is not experiencing much pain or numbness/tingling. When he does experience numbness/tingling it primarily occurs near his right axilla and his right wrist. He denies any specific finger involvement in relation to his pain. He reports no subjective weakness associated with his pain. He denies any issues with dexterity or handgrip. No issues with bowel / bladder incontinence. No balance problems. He has attempted physician directed at-home stretching/exercise to help treat this issue without significant relief of his symptoms. He has also attempted uudw-awl-jpjvijk medications and supplements such as Tylenol/NSAIDs, turmeric, and pain patches/creams. Unfortunately these only provide modest relief of his symptoms. In addition to this he reports that at one point he tried 6 weeks of chiropractor adjustments that caused him severe pain and did not help his condition at all. PMH: Insomnia, obesity, GERD, high blood pressure, hyperlipidemia. 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 Social hx: Patient does not smoke. Reports no substance use. Drinks alcohol socially / occasionally at special events or parties. Medications: See Epoch list. Allergies: NKDA. Physical exam: On examination today the patient has full 5/5 strength of his upper and lower extremities. He ambulates well with a non spastic nonantalgic gait. He uses no assistive devices to ambulate. He rises from a seated position without bracing himself on the chair, and gets up onto the examination table without issue. His reflexes are 2+ intact diffusely. He asked some hypoesthesia reported near the right wrist and right axilla, however denies any significant sensational deficits elsewhere. (+) right-sided Tinel's at wrist, (+) left-sided Phalen's, (-) bilateral straight leg raise, (-) Buchanan's, (-) clonus, (-) Lhermitte's. Imaging review: MRI of the cervical spine completed at [place] (patient brought disc) on 04/03/2025 shows moderate central canal and severe right sided lateral recess stenosis at C4-5, mild central canal and moderate left-sided foraminal stenosis at C5-6, and moderate-severe right-sided foraminal stenosis at C6-7. Impression: Ismael is a pleasant 54-year-old male who comes in today for evaluation of right-sided posterior neck pain and right-sided arm pain. His posterior neck pain has been ongoing since about 2019, however the dull achy feeling in his right arm seems to be newer than this, becoming most noticeable around January of this year. The pain that he describes is fairly low-grade in nature, and seems to wax and wane in nature. He does not appear to have any significant neurological deficits associated with this pain. He has no myelopathic reflexes on exam. He does disclose some concerning signs/symptoms for concurrent median nerve entrapment while taking his history. He also has some pain when testing for Tinel's on the right and some numbness / pain when testing for Phalen's sign on the left. I think a good first step for this patient would be to obtain an EMG of the bilateral upper extremities to rule out confounding carpal / cubital tunnel syndrome that could be contributing to his symptoms today in office. In the absence of significant pain or myelopathic symptoms during exam today I believe the patient would be best served trying to treat his cervical spine concerns conservatively via injections with your office for the time being. We may consider him for cervical spine fusion if his symptoms worsen and he fails attempted injections / conservative interventions at C4-5. We may also consider median nerve release depending on EMG resutls. Thank you for allowing us to care for your patient. The total time spent with this visit with this patient was 45 minutes reviewing history, physical exam, MRI imaging review, and implementation of treatment plan or further diagnostic testing Brett Anderson MD,PhD [facility] Coding Level of Care Code New Pt Level 4 (31105) Diagnoses Hand numbness R20.0 Cervicalgia M54.2 Right arm pain M79.601
[2025-04-28 14:08] VITALS: BMI 22.1
== END 2025-04-28 14:49 | disposition home or self-care (01) ==
LOC: HO.HNS 13:54
PROVIDERS: PCP Internal Medicine; Referring Provider Physical Medicine & Rehabilitation; Visit Provider Physician Assistant
DX: R20.0 Anesthesia of skin (principal); M54.2 Cervicalgia; M79.601 Pain in right arm
CPT/HCPCS: 99204